=== PATIENT | female | born 1960 | race Asian ===

== ENCOUNTER → 2017-10-15 | Outpatient (CLI) | payer BC ==
[~2017-10-15] MED LIST: DIOVAN320 MG PO
== END ==
LOC: MC.RAD 14:20
DX: Z12.31 Encounter for screening mammogram for malignant neoplasm of breast (principal)

== ENCOUNTER → 2017-10-21 | Outpatient (CLI) | payer BC | LOC: COL.RAD 13:13 | DX: M48.02 Spinal stenosis, cervical region (principal); D32.1 Benign neoplasm of spinal meninges; M47.812 Spondylosis without myelopathy or radiculopathy, cervical region; Z98.890 Other specified postprocedural states | CPT/HCPCS: A9585 ==

== ENCOUNTER → 2018-10-19 | Outpatient (CLI) | payer BC | LOC: MC.RAD 14:40 | DX: Z12.31 Encounter for screening mammogram for malignant neoplasm of breast (principal) ==

== ENCOUNTER → 2019-10-20 | Outpatient (CLI) | payer BC | LOC: MC.RAD 14:57 | DX: Z12.31 Encounter for screening mammogram for malignant neoplasm of breast (principal) ==

== ENCOUNTER → 2022-01-08 | Outpatient (CLI) | payer OTHER ==
[~2022-01-08] MED LIST changes: +HYDRODIURIL50 MG PO; +IBU800 M1 PO; +PERCOCET 325 MG1 TA2 PO
== END ==
LOC: MC.RAD 13:00
DX: N64.9 Disorder of breast, unspecified (principal)

== ENCOUNTER → 2022-01-28 | Outpatient (CLI) | payer OTHER | LOC: MC.RAD 08:58 | DX: N60.02 Solitary cyst of left breast (principal) ==